=== PATIENT | female | born 1955 | race Caucasian/White ===

== ENCOUNTER 2017-11-17 07:44 | Emergency (ER) | payer OTHER ==
[~2017-11-17] VITALS: Ht 165.1 cm; Wt 72.6 kg
[2017-11-17 07:45] VITALS: BP 158/73
[2017-11-17 08:00] LABS: ABSOLUTE BASOPHILS 0.1 thou/uL (0.0-0.2); ABSOLUTE EOSINOPHILS 0.3 thou/uL (0.0-0.7); ABSOLUTE LYMPHOCYTES 2.2 thou/uL (0.8-5.3); ABSOLUTE MONOCYTES 0.6 thou/uL (0.0-1.2); ABSOLUTE NEUTROPHILS 3.7 thou/uL (1.6-8.1); BASOPHILS 1.4 %; HEMATOCRIT 43.3 % (37.0-47.0); HEMOGLOBIN 14.5 gm/dL (12.0-15.0); LYMPHOCYTES 31.3 %; MCH 31.3 pg (26.0-34.0); MCHC 33.4 g/dL (28.0-37.0); MCV 93.6 fL (80.0-100.0); MONOCYTES 9.1 %; MPV 9.2 fl. (7.2-11.1); NUCLEATED RBCS 0 /100WBC; PLATELET COUNT* 202 thou/uL (150-400); POLYS 53.2 %; RBC 4.63 mil/uL (4.20-5.00); RDW-CV 14.1 % (10.5-14.5)
[2017-11-17 08:10] LABS: ANION GAP 6 mmol/L (7-16); BUN 13 mg/dL (7-18); CALCIUM 8.9 mg/dL (8.5-10.1); CHLORIDE 103 mmol/L (98-107); CO2 31 mmol/L (21-32); CREATININE 0.9 mg/dL (0.6-1.3); GLUCOSE 97 mg/dL (70-99); POTASSIUM 4.9 mmol/L (3.5-5.1); SODIUM 140 mmol/L (136-145)
[2017-11-17 08:21] LABS: ALBUMIN 3.7 g/dL (3.4-5.0); ALKALINE PHOSPHATASE 141 U/L (46-116); SGOT 26 U/L (15-37); SGPT 28 U/L (30-65); TOTAL BILIRUBIN 0.3 mg/dL (<0.1-1.0); TOTAL PROTEIN 7.6 g/dL (6.4-8.2)
[2017-11-17 08:32] LABS: POC CA IONIZED 4.8 mg/dL (4.5-5.3); POC CREATININE 0.8 mg/dL (0.6-1.3); POC HEMOGLOBIN 13.9 g/dL (12.0-17.0); POC POTASSIUM 4.7 mmol/L (3.5-4.9)
[2017-11-17 08:41] LABS: APTT 27.7 Seconds (25.0-31.3); PROTIME 9.4 Seconds (9.20-11.50)
[2017-11-17 08:43] LABS: TROPONIN-I LEVEL <0.06 ng/mL (<0.06)
[2017-11-17] MEDS ORDERED: ATORVASTATIN CA40 MG PO (09:06)
[2017-11-17] MEDS ORDERED: LISINOPRIL20 MG PO (09:06)
[2017-11-17] MEDS ORDERED: PLAVIX 75 MG TA75 M1 PO (09:07)
[2017-11-17] MEDS ORDERED: PROZAC20 MG PO (09:07)
[2017-11-17 10:08] VITALS: BP 155/52
--- NOTE | 2017-11-17 15:35 | EKG ---
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 JANE : 1955 Requested By: Quincy Clemente Order Number: [id number] MD: Eulogio Mccarthy Measurements Intervals [place] Rate: 79 P: 68 NC: 119 QRS: 65 QRSD: 84 T: 265 QT: 385 QTc: 442 Interpretive Statements Sinus rhythm Borderline short NC interval Nonspecific repol abnormality, diffuse leads No previous ECG available for comparison Electronically Signed On 11-17-2017 15:34:53 [employer] by Eulogio Mccarthy [email or web address] <ELECTRONICALLY SIGNED> By: Eulogio Mccarthy MD, [facility] 11/17/17 1534 5 5 Eulogio Mccarthy MD, FACC /EPI
== END 2017-11-17 10:10 | disposition short-term general hospital (02) ==
LOC: M.ERS 07:44 → M.TBA-ER 08:53 → M.ERS 08:53
PROVIDERS: Family Medicine
DX: I63.9 Cerebral infarction, unspecified (principal); Z88.2 Allergy status to sulfonamides